=== PATIENT | male | born 1990 ===

== ENCOUNTER 2021-03-10 01:39 | Inpatient (IN) ==
[2021-03-10 02:34] LABS: Basophils % 0.2 %; Hematocrit 42.8 % (37.5-50.1); Immature Granulocytes % 0.3 % (0-4); Lymphocytes # 1.8 K/mcL (0.6-4.6); Lymphocytes % 14.1 %; Mean Corpuscular HGB Conc 32.7 g/dL (31.6-35.5); Mean Corpuscular Hemoglobin 29.8 pg (28.0-33.3); Mean Corpuscular Volume 91.1 fL (83.0-100.0); Mean Platelet Volume 9.5 fL (9.4-12.4); Monocytes # 1.1 K/mcL (0.0-1.3); Monocytes % 9.1 %; Neutrophils # 9.5 K/mcL (1.6-8.9); Platelet Count 304 K/mcL (140-400); Red Cell Distribution Width 12.4 % (11.5-14.5); Segmented Neutrophils % 76.3 %; White Blood Count 12.4 K/mcL (4.3-11.1)
[2021-03-10 03:06] LABS: Bacteria,Urine Few per hpf (None-Few); Bilirubin,Urine Negative (Negative); Blood,Urine Negative (Negative); Clarity,Urine Clear (Clear); Color,Urine Yellow (Yellow); Glucose,Urine (UA) Normal (Normal); Ketones,Urine 60 mg/dL (Negative); Leukocyte Esterase,Urine Negative (Negative); Mucus,Urine Many per lpf (None-Few); Nitrite,Urine Negative (Negative); Protein,Urine 50 mg/dL (Neg-Trace); RBC,Urine 0-3 per hpf (0-3); Specific Gravity,Urine > 1.030 (1.010-1.025); Urobilinogen,Urine Normal (Normal); WBC,Urine 0-3 per hpf (0-3)
[2021-03-10 03:14] LABS: Amphetamine Screen,Urine Negative ng/mL (Cutoff=1000); Barbiturate Screen,Urine Negative ng/mL (Cutoff=200); Benzodiazepines Screen,Urine Positive ng/mL (Cutoff=200); Cannabinoid Screen,Urine Negative ng/mL (Cutoff = 50); Cocaine Screen,Urine Negative ng/mL (Cutoff= 300); Opiate Screen,Urine Negative ng/mL (Cutoff=300); Phencyclidine Screen,Urine Negative ng/mL (Cutoff=25)
[2021-03-10 03:17] LABS: Acetaminophen < 10 mcg/mL (10-20); Alanine Aminotransferase 11 Units/L (7-52); Albumin 4.9 g/dL (3.5-5.7); Albumin/Globulin Ratio 1.6 (1.1-2.2); Alkaline Phosphatase 59 Units/L (34-104); Aspartate Amino Transferase 14 Units/L (13-39); BUN/Creatinine Ratio 20 (6-26); Bilirubin,Direct 0.1 mg/dL (0.0-0.2); Bilirubin,Indirect 0.6 mg/dL (0.0-1.0); Bilirubin,Total 0.7 mg/dL (0.3-1.0); Blood Urea Nitrogen 22 mg/dL (6-20); Calcium 9.6 mg/dL (8.6-10.3); Carbon Dioxide 19 mEq/L (23-29); Chloride 103 mEq/L (98-107); Ethanol < 10 mg/dL (Less than 10); Glucose 106 mg/dL (70-105); Osmolality,Calculated 290 (280-300); Potassium 3.4 mEq/L (3.5-5.1); Salicylate < 2.5 mg/dL (15.0-30.0); Sodium 138 mEq/L (136-145); Total Protein 7.9 g/dL (6.4-8.9); eGFR For African Americans > 60 (> 60); eGFR For Non-African Americans > 60 (> 60)
[2021-03-10] MEDS ORDERED: Haloperidol Lactate 5 MG/ML VIAL IM ONE (11:30)
[2021-03-10 13:06] LABS: Adenovirus Not Detected (Not Detect); Bordetella Pertussis Not Detected (Not Detect); Chlamydophila pneumoniae Not Detected (Not Detect); Coronavirus 229E Not Detected (Not Detect); Coronavirus HKU1 Not Detected (Not Detect); Coronavirus NL63 Not Detected (Not Detect); Coronavirus OC43 Not Detected (Not Detect); Human Metapneumovirus Not Detected (Not Detect); Human Rhinovirus/Enterovirus Not Detected (Not Detect); Influenza A Subtype 2009 H1 Not Detected (Not Detect); Influenza B Not Detected (Not Detect); Mycoplasma pneumoniae Not Detected (Not Detect); Parainfluenza Virus 1 Not Detected (Not Detect); Parainfluenza Virus 2 Not Detected (Not Detect); Parainfluenza Virus 3 Not Detected (Not Detect); Parainfluenza Virus 4 Not Detected (Not Detect); Respiratory Syncytial Virus Not Detected (Not Detect); SARS-CoV-2 Not Detected (Not Detect)
[2021-03-10] MEDS ORDERED: Haloperidol Lactate 5 MG/ML VIAL IM PRN (15:46)
[2021-03-10] MEDS ORDERED: *HR* LORazepam 1 MG TABLET PO PRN (15:46)
[2021-03-10] MEDS ORDERED: MOM Conc 10 ML UD.LIQ PO PRN (15:46)
[2021-03-10] MEDS ORDERED: Mag Hydrox/Al Hydrox/Simeth 30 ML UDC PO PRN (15:46)
[2021-03-10] MEDS ORDERED: haloperidoL 5 MG TABLET PO PRN (15:46)
[2021-03-10] MEDS ORDERED: QUEtiapine Fumarate 25 MG TABLET PO PRN (15:46)
[2021-03-10] MEDS ORDERED: *HR* LORazepam 2 MG/ML VIAL IM PRN (15:46)
[2021-03-10] MEDS: hydrOXYzine pamoate 25 MG CAPSULE PO PRN (18:30)
[2021-03-11] MEDS: cloNIDine HCL 0.1 MG TABLET PO SCH ×3 (10:08→20:06)
[2021-03-11] MEDS ORDERED: Nicotine 2 MG GUM BC PRN (10:26)
[2021-03-11] MEDS ORDERED: cloNIDine HCL 0.1 MG TABLET PO SCH (15:00)
[2021-03-11] MEDS: hydrOXYzine pamoate 25 MG CAPSULE PO PRN ×2 (15:07→20:09)
[2021-03-11] MEDS: Acetaminophen 325 MG TABLET PO PRN (17:56)
[2021-03-11] MEDS ORDERED: QUEtiapine Fumarate 100 MG TABLET PO SCH (21:00)
[2021-03-11] MEDS: QUEtiapine Fumarate 100 MG TABLET PO PRN (21:02)
[2021-03-12] MEDS: hydrOXYzine pamoate 25 MG CAPSULE PO PRN ×3 (07:35→18:49)
[2021-03-12] MEDS: cloNIDine HCL 0.1 MG TABLET PO SCH ×3 (09:26→21:19)
[2021-03-12] MEDS: Acetaminophen 325 MG TABLET PO PRN (11:12)
[2021-03-12] MEDS: QUEtiapine Fumarate 100 MG TABLET PO SCH ×2 (11:48→21:19)
[2021-03-13] MEDS: QUEtiapine Fumarate 100 MG TABLET PO SCH ×2 (08:31→20:03)
[2021-03-13] MEDS: cloNIDine HCL 0.1 MG TABLET PO SCH ×3 (08:32→20:02)
[2021-03-14] MEDS: QUEtiapine Fumarate 100 MG TABLET PO PRN (01:44)
[2021-03-14] MEDS: hydrOXYzine pamoate 25 MG CAPSULE PO PRN (01:44)
[2021-03-14] MEDS: QUEtiapine Fumarate 100 MG TABLET PO SCH (08:58)
[2021-03-14] MEDS: cloNIDine HCL 0.1 MG TABLET PO SCH (08:58)
[2021-03-14 09:59] VITALS: BP 135/93; PULSE 80; TEMP 98.3; O2SAT 99
[2021-03-14] MEDS ORDERED: QUEtiapine Fumarate 300 MG TABLET PO SCH (21:00)
== END 2021-03-14 12:40 | disposition home or self-care (01) | DRG 751 ==
LOC: EMEROOARM 01:39 → 1ANU 13:31
PROVIDERS: ADMIT Psychiatry & Neurology Psychiatry; ATTEND Psychiatry & Neurology Psychiatry

== ENCOUNTER 2021-04-11 08:10 | Inpatient (IN) ==
[2021-04-11 09:19] LABS: Basophils % 0.1 %; Eosinophils % 0.1 %; Hematocrit 43.9 % (37.5-50.1); Hemoglobin 15.1 g/dL (12.9-16.9); Immature Granulocytes % 0.1 % (0-4); Lymphocytes # 1.7 K/mcL (0.6-4.6); Lymphocytes % 21.3 %; Mean Corpuscular HGB Conc 34.4 g/dL (31.6-35.5); Mean Corpuscular Hemoglobin 30.4 pg (28.0-33.3); Mean Corpuscular Volume 88.5 fL (83.0-100.0); Mean Platelet Volume 9.8 fL (9.4-12.4); Monocytes # 0.4 K/mcL (0.0-1.3); Monocytes % 5.2 %; Neutrophils # 5.8 K/mcL (1.6-8.9); Platelet Count 299 K/mcL (140-400); Red Blood Count 4.96 M/mcL (4.19-5.50); Red Cell Distribution Width 11.9 % (11.5-14.5); Segmented Neutrophils % 73.2 %; White Blood Count 7.9 K/mcL (4.3-11.1)
[2021-04-11 09:22] LABS: Bilirubin,Urine Negative (Negative); Blood,Urine Negative (Negative); Clarity,Urine Clear (Clear); Color,Urine Light-Yellow (Yellow); Glucose,Urine (UA) Normal (Normal); Ketones,Urine Negative (Negative); Leukocyte Esterase,Urine Negative (Negative); Mucus,Urine Few per lpf (None-Few); Nitrite,Urine Negative (Negative); PH,Urine 5.5 pH Units (5.0-8.0); Protein,Urine 30 mg/dL (Neg-Trace); RBC,Urine 0-3 per hpf (0-3); Specific Gravity,Urine 1.028 (1.010-1.025); Squamous Epithelial Cell,Urine Few per hpf (None-Few); Urobilinogen,Urine Normal (Normal); WBC,Urine 0-3 per hpf (0-3)
[2021-04-11 09:33] LABS: Estimated Average Glucose 120 mg/dl; Hemoglobin A1C 5.8 %
[2021-04-11 09:43] LABS: Acetaminophen < 10 mcg/mL (10-20); BUN/Creatinine Ratio 11 (6-26); Blood Urea Nitrogen 13 mg/dL (6-20); Calcium 10.4 mg/dL (8.6-10.3); Carbon Dioxide 23 mEq/L (23-29); Chloride 102 mEq/L (98-107); Chol/HDL Ratio 4.8 (0-4.9); Cholesterol 263 mg/dL (< 200); Ethanol < 10 mg/dL (Less than 10); Glucose 110 mg/dL (70-105); HDL Cholesterol 55 mg/dL (40-59); LDL Cholesterol,Calculated 158 mg/dL (< 100); Osmolality,Calculated 283 (280-300); Potassium 4.1 mEq/L (3.5-5.1); Salicylate < 2.5 mg/dL (15.0-30.0); Sodium 136 mEq/L (136-145); Triglycerides 248 mg/dL (< 150); eGFR For African Americans > 60 (> 60); eGFR For Non-African Americans > 60 (> 60)
[2021-04-11 10:56] LABS: Amphetamine Screen,Urine Negative ng/mL (Cutoff=1000); Barbiturate Screen,Urine Negative ng/mL (Cutoff=200); Benzodiazepines Screen,Urine Negative ng/mL (Cutoff=200); Cannabinoid Screen,Urine Negative ng/mL (Cutoff = 50); Cocaine Screen,Urine Negative ng/mL (Cutoff= 300); Opiate Screen,Urine Negative ng/mL (Cutoff=300); Phencyclidine Screen,Urine Negative ng/mL (Cutoff=25)
[2021-04-11] MEDS ORDERED: *HR* LORazepam 2 MG/ML VIAL IM ONE (12:02)
[2021-04-11 14:45] LABS: Influenza A PCR Negative (Negative); Influenza B PCR Negative (Negative); Resp. Syncytial Virus PCR Negative (Negative)
[2021-04-11 14:49] LABS: SARS-CoV-2 by PCR (In House) Negative (Negative)
[2021-04-11] MEDS ORDERED: Ibuprofen 400 MG TABLET PO PRN (16:35)
[2021-04-11] MEDS ORDERED: haloperidoL 5 MG TABLET PO PRN (16:35)
[2021-04-11] MEDS ORDERED: *HR* LORazepam 1 MG TABLET PO PRN (16:35)
[2021-04-11] MEDS ORDERED: *HR* LORazepam 2 MG/ML VIAL IM PRN (16:35)
[2021-04-11] MEDS ORDERED: Haloperidol Lactate 5 MG/ML VIAL IM PRN (16:35)
[2021-04-11] MEDS: QUEtiapine Fumarate 25 MG TABLET PO PRN ×2 (21:13→22:45)
[2021-04-11] MEDS: Acetaminophen 325 MG TABLET PO PRN (21:13)
[2021-04-11] MEDS: hydrOXYzine pamoate 25 MG CAPSULE PO PRN (21:13)
[2021-04-12] MEDS: hydrOXYzine pamoate 25 MG CAPSULE PO PRN ×2 (01:41→18:01)
[2021-04-12] MEDS: hydrOXYzine pamoate 25 MG CAPSULE PO SCH ×3 (10:29→21:03)
[2021-04-12] MEDS: QUEtiapine Fumarate 100 MG TABLET PO SCH ×3 (10:29→20:05)
[2021-04-12] MEDS: cloNIDine HCL 0.1 MG TABLET PO SCH ×3 (10:30→20:05)
[2021-04-12] MEDS: Acetaminophen 325 MG TABLET PO PRN (20:07)
[2021-04-12] MEDS: QUEtiapine Fumarate 25 MG TABLET PO PRN (21:03)
[2021-04-13] MEDS: hydrOXYzine pamoate 25 MG CAPSULE PO PRN ×2 (05:05→17:52)
[2021-04-13] MEDS: QUEtiapine Fumarate 100 MG TABLET PO SCH ×3 (08:22→20:04)
[2021-04-13] MEDS: hydrOXYzine pamoate 25 MG CAPSULE PO SCH ×3 (08:22→20:05)
[2021-04-13] MEDS: cloNIDine HCL 0.1 MG TABLET PO SCH ×3 (08:23→20:04)
[2021-04-13] MEDS: clonazePAM 1 MG TABLET PO SCH ×2 (09:28→20:04)
[2021-04-14] MEDS: QUEtiapine Fumarate 100 MG TABLET PO SCH ×3 (08:42→19:59)
[2021-04-14] MEDS: hydrOXYzine pamoate 25 MG CAPSULE PO SCH ×3 (08:42→19:58)
[2021-04-14] MEDS: clonazePAM 1 MG TABLET PO SCH (08:42)
[2021-04-14] MEDS: cloNIDine HCL 0.1 MG TABLET PO SCH ×3 (08:43→19:58)
[2021-04-14] MEDS: hydrOXYzine pamoate 25 MG CAPSULE PO PRN (11:48)
[2021-04-14] MEDS ORDERED: clonazePAM 1 MG TABLET PO ONE (13:09)
[2021-04-14] MEDS: clonazePAM 0.5 MG TABLET PO SCH (19:58)
[2021-04-14 22:19] VITALS: PULSE 86; O2SAT 98
[2021-04-15] MEDS: QUEtiapine Fumarate 100 MG TABLET PO SCH (08:10)
[2021-04-15] MEDS: clonazePAM 0.5 MG TABLET PO SCH (08:10)
[2021-04-15] MEDS: hydrOXYzine pamoate 25 MG CAPSULE PO SCH (08:10)
[2021-04-15] MEDS: cloNIDine HCL 0.1 MG TABLET PO SCH (08:10)
[2021-04-15 09:17] VITALS: BP 115/84; TEMP 97.5
== END 2021-04-15 10:40 | disposition home or self-care (01) | DRG 750 ==
LOC: EMEROOARM 08:10 → 1ANU 16:28
PROVIDERS: ADMIT Psychiatry & Neurology Psychiatry; ATTEND Psychiatry & Neurology Psychiatry

== ENCOUNTER 2021-10-06 02:33 | Observation (INO) ==
[2021-10-06] MEDS ORDERED: 0.9 % Sodium Chloride 1,000 ML IVC ONE ×2 (02:41→06:01)
[2021-10-06 02:57] LABS: Basophils % 0.3 %; Eosinophils % 0.5 %; Immature Granulocytes % 0.2 % (0-4); Lymphocytes % 47.7 %; Mean Corpuscular HGB Conc 33.3 g/dL (31.6-35.5); Mean Corpuscular Hemoglobin 30.2 pg (28.0-33.3); Mean Corpuscular Volume 90.5 fL (83.0-100.0); Mean Platelet Volume 9.5 fL (9.4-12.4); Monocytes # 0.4 K/mcL (0.0-1.3); Monocytes % 6.3 %; Neutrophils # 2.8 K/mcL (1.6-8.9); Platelet Count 256 K/mcL (140-400); Red Blood Count 4.31 M/mcL (4.19-5.50); Red Cell Distribution Width 13.5 % (11.5-14.5); White Blood Count 6.2 K/mcL (4.3-11.1)
[2021-10-06 03:06] LABS: Estimated Average Glucose 108 mg/dl; Hemoglobin A1C 5.4 %
[2021-10-06 03:17] LABS: Acetaminophen < 10 mcg/mL (10-20); Alanine Aminotransferase 14 Units/L (7-52); Albumin 3.9 g/dL (3.5-5.7); Albumin/Globulin Ratio 1.8 (1.1-2.2); Alkaline Phosphatase 52 Units/L (34-104); Aspartate Amino Transferase 12 Units/L (13-39); BUN/Creatinine Ratio 6 (6-26); Bilirubin,Direct 0.1 mg/dL (0.0-0.2); Bilirubin,Indirect 0.2 mg/dL (0.0-1.0); Bilirubin,Total 0.3 mg/dL (0.3-1.0); Blood Urea Nitrogen 4 mg/dL (6-20); Calcium 8.4 mg/dL (8.6-10.3); Carbon Dioxide 23 mEq/L (23-29); Chloride 109 mEq/L (98-107); Chol/HDL Ratio 4.5 (0-4.9); Cholesterol 186 mg/dL (< 200); Creatine Kinase 32 Units/L (30-223); Ethanol 180 mg/dL (Less than 10); Globulin 2.2 g/dL (2.4-3.5); Glucose 137 mg/dL (70-105); HDL Cholesterol 41 mg/dL (40-59); LDL Cholesterol,Calculated 111 mg/dL (< 100); Osmolality,Calculated 293 (280-300); Potassium 3.1 mEq/L (3.5-5.1); Salicylate < 2.5 mg/dL (15.0-30.0); Sodium 142 mEq/L (136-145); Total Protein 6.1 g/dL (6.4-8.9); Triglycerides 168 mg/dL (< 150); Troponin I < 0.03 ng/mL (< 0.04); eGFR For African Americans > 60 (> 60); eGFR For Non-African Americans > 60 (> 60)
[2021-10-06 03:30] LABS: Thyroid Stimulating Hormone 3.098 mcIU/mL (0.340-5.600)
[2021-10-06 04:05] LABS: Magnesium 2.2 mg/dL (1.6-2.6)
[2021-10-06 04:47] LABS: Bilirubin,Urine Negative (Negative); Blood,Urine Negative (Negative); Clarity,Urine Clear (Clear); Color,Urine Colorless (Yellow); Glucose,Urine (UA) 50 mg/dL (Normal); Hyaline Casts,Urine Few per lpf (None Seen); Ketones,Urine Negative (Negative); Leukocyte Esterase,Urine Negative (Negative); Mucus,Urine Few per lpf (None-Few); Nitrite,Urine Negative (Negative); PH,Urine 6.5 pH Units (5.0-8.0); Protein,Urine Negative (Neg-Trace); RBC,Urine 0-3 per hpf (0-3); Specific Gravity,Urine 1.006 (1.010-1.025); Squamous Epithelial Cell,Urine Few per hpf (None-Few); Urobilinogen,Urine Normal (Normal); WBC,Urine 0-3 per hpf (0-3)
[2021-10-06 04:54] LABS: Amphetamine Screen,Urine Negative ng/mL (Cutoff=1000); Barbiturate Screen,Urine Negative ng/mL (Cutoff=200); Benzodiazepines Screen,Urine Negative ng/mL (Cutoff=200); Cannabinoid Screen,Urine Negative ng/mL (Cutoff = 50); Cocaine Screen,Urine Negative ng/mL (Cutoff= 300); Opiate Screen,Urine Negative ng/mL (Cutoff=300); Phencyclidine Screen,Urine Negative ng/mL (Cutoff=25)
[2021-10-06] MEDS ORDERED: *HR* LORazepam 2 MG/ML VIAL IM ONE (10:03)
[2021-10-06] MEDS ORDERED: *HR* LORazepam 2 MG/ML VIAL IVP PRN (12:00)
[2021-10-06] MEDS ORDERED: Ondansetron ODT 4 MG TAB.RAPDIS SL PRN (12:01)
[2021-10-06] MEDS ORDERED: Acetaminophen 325 MG TABLET PO PRN (12:01)
[2021-10-06] MEDS ORDERED: Naloxone 0.4 MG/ML INJ IVP PRN (12:01)
[2021-10-06 13:05] LABS: Influenza A PCR Negative (Negative); Influenza B PCR Negative (Negative); Resp. Syncytial Virus PCR Negative (Negative)
[2021-10-06 13:07] LABS: SARS-CoV-2 by PCR (In House) Negative (Negative)
[2021-10-06] MEDS: Thiamine (B-1) 100 MG TABLET PO SCH (13:55)
[2021-10-06] MEDS: Folic Acid 1 MG TABLET PO SCH (13:55)
[2021-10-06] MEDS ORDERED: hydrOXYzine pamoate 25 MG CAPSULE PO PRN (14:58)
[2021-10-06] MEDS: FOLIC ACID IVPB SCH (17:07)
[2021-10-06] MEDS: cloNIDine HCL 0.1 MG TABLET PO SCH ×2 (17:07→20:43)
[2021-10-06] MEDS: SODIUM CHLORIDE 0.9% IVPB SCH (17:07)
[2021-10-06] MEDS: 0.9 % Sodium Chloride 1,000 ML IVC SCH (17:08)
[2021-10-06] MEDS: *HR* LORazepam 2 MG/ML VIAL IVP PRN (17:21)
[2021-10-06] MEDS ORDERED: Thiamine (B-1) 100 MG in 0.9 % Sodium Chloride 100 ML IVPB SCH (18:00)
[2021-10-07] MEDS: *HR* LORazepam 2 MG/ML VIAL IVP PRN ×3 (03:47→21:01)
[2021-10-07] MEDS: 0.9 % Sodium Chloride 1,000 ML IVC SCH (03:47)
[2021-10-07 06:49] LABS: Basophils % 0.1 %; Eosinophils # 0.1 K/mcL (0.0-0.6); Eosinophils % 0.6 %; Hematocrit 40.6 % (37.5-50.1); Hemoglobin 13.7 g/dL (12.9-16.9); Immature Granulocytes % 0.3 % (0-4); Lymphocytes # 2.1 K/mcL (0.6-4.6); Lymphocytes % 22.9 %; Mean Corpuscular HGB Conc 33.7 g/dL (31.6-35.5); Mean Corpuscular Hemoglobin 30.9 pg (28.0-33.3); Mean Corpuscular Volume 91.4 fL (83.0-100.0); Mean Platelet Volume 9.7 fL (9.4-12.4); Monocytes # 0.6 K/mcL (0.0-1.3); Monocytes % 6.4 %; Neutrophils # 6.3 K/mcL (1.6-8.9); Platelet Count 306 K/mcL (140-400); Red Blood Count 4.44 M/mcL (4.19-5.50); Red Cell Distribution Width 14.1 % (11.5-14.5); Segmented Neutrophils % 69.7 %; White Blood Count 9.1 K/mcL (4.3-11.1)
[2021-10-07 07:10] LABS: Alanine Aminotransferase 13 Units/L (7-52); Albumin 4.5 g/dL (3.5-5.7); Alkaline Phosphatase 62 Units/L (34-104); Aspartate Amino Transferase 13 Units/L (13-39); BUN/Creatinine Ratio 6 (6-26); Bilirubin,Indirect 0.4 mg/dL (0.0-1.0); Bilirubin,Total 0.4 mg/dL (0.3-1.0); Blood Urea Nitrogen 5 mg/dL (6-20); Calcium 9.7 mg/dL (8.6-10.3); Carbon Dioxide 24 mEq/L (23-29); Chloride 106 mEq/L (98-107); Ethanol < 10 mg/dL (Less than 10); Globulin 2.2 g/dL (2.4-3.5); Glucose 95 mg/dL (70-105); Magnesium 1.9 mg/dL (1.6-2.6); Osmolality,Calculated 289 (280-300); Sodium 141 mEq/L (136-145); Total Protein 6.7 g/dL (6.4-8.9); eGFR For African Americans > 60 (> 60); eGFR For Non-African Americans > 60 (> 60)
[2021-10-07] MEDS: Thiamine (B-1) 100 MG TABLET PO SCH (07:52)
[2021-10-07] MEDS: cloNIDine HCL 0.1 MG TABLET PO SCH ×3 (07:52→19:23)
[2021-10-07] MEDS: Folic Acid 1 MG TABLET PO SCH (07:52)
[2021-10-07] MEDS: SODIUM CHLORIDE 0.9% IVPB SCH (18:42)
[2021-10-07] MEDS: FOLIC ACID IVPB SCH (18:42)
[2021-10-08] MEDS: cloNIDine HCL 0.1 MG TABLET PO SCH ×2 (09:08→13:42)
[2021-10-08] MEDS: Thiamine (B-1) 100 MG TABLET PO SCH (09:08)
[2021-10-08] MEDS: Folic Acid 1 MG TABLET PO SCH (09:08)
[2021-10-08 13:43] VITALS: BP 120/81; PULSE 87; TEMP 97.9; O2SAT 98
[2021-10-08] MEDS ORDERED: *HR* LORazepam 1 MG TABLET PO ONE (15:25)
== END 2021-10-08 16:14 ==
LOC: 3BNU 02:33 → EMEROOARM 02:33 → SUATTDRO 13:02 → 3BNU 14:20
PROVIDERS: ADMIT Student in an Organized Health Care Education/Training Program; ATTEND Internal Medicine